=== PATIENT | female | born 1980 | race Caucasian/White ===

== ENCOUNTER → 2022-03-15 | Outpatient (CLI) | payer OTHER ==
[~2022-03-15] MED LIST: CALC-656 PO; CLC500CT PO; KCL10CCR PO; LOPE2TAB23 PO; MAGN200T3 PO; METO25TA2 PO; OMG1KC PO; ONDN4T PO; POTA10CA43 PO; POTA15TA2 PO; PREN1TAB39 PO; PROM25SU10 RC
--- NOTE | 2022-03-15 14:58 | Diagnostic Imaging Report ---
INDICATION: Routine screening. COMPARISON is made with prior mammogram 02/16/2020. 2-D and 3-D bilateral screening mammography was performed with CAD. Both breasts are heterogeneously dense, limiting the sensitivity of mammography. The parenchymal pattern is stable. No mass or malignant-appearing microcalcifications are seen. Axillae are unremarkable. IMPRESSION: BI-RADS Category 1 No mammographic features suspicious for malignancy are identified. ACR BI-RADS Category 1: Negative. Result letter will be mailed to the patient. Note: At least 10% of breast cancer is not imaged by mammography. Dictated by: Dictated on workstation # [id number]
== END ==
LOC: RAD 07:30
PROVIDERS: ATTEND Nurse Practitioner Family
DX: Z12.31 Encounter for screening mammogram for malignant neoplasm of breast (principal); Z80.3 Family history of malignant neoplasm of breast
CPT/HCPCS: 77063; 77067

== ENCOUNTER → 2023-01-13 | Outpatient (CLI) | payer OTHER ==
--- NOTE | 2023-01-13 10:26 | Diagnostic Imaging Report ---
MRI CERVICAL SPINE W/O CONTRAS DATE: 01/13/2023 9:51 AM INDICATION: Neck pain with left arm numbness and weakness TECHNIQUE: Multiplanar multisequence magnetic resonance imaging of the cervical spine was performed without administration of intravenous contrast using the standard cervical spine protocol. COMPARISON: None. FINDINGS: Straightening of the cervical lordosis. Mild retrolisthesis of C4-C5 and C5-C6. Mild anterolisthesis of C3-C4. No acute fracture. Moderate multilevel degenerative disc desiccation and disc height loss. No marrow replacing process to suggest malignancy. The spinal cord is normal in signal intensity. On the limited views of the cranial cavity and brain, the cerebellum and ujan ramon have normal morphology and signal characteristics. No Chiari malformation. No soft tissue abnormality. Normal signal voids are present in the vertebral arteries. C2-3: Disc osteophyte complex. Uncovertebral and facet arthropathy. Mild spinal canal narrowing. No neural foraminal narrowing.. C3-4: Disc osteophyte complex. Uncovertebral and facet arthropathy. Mild spinal canal narrowing. No neural foraminal narrowing.. C4-5: Disc osteophyte complex. Uncovertebral and facet arthropathy. Moderate spinal canal narrowing. Mild bilateral neural foraminal narrowing.. C5-6: Disc osteophyte complex causing mass effect on the spinal cord. Moderate to severe spinal canal narrowing. Severe left and moderate right neural foraminal narrowing.. C6-7: Disc osteophyte complex. Uncovertebral and facet arthropathy. Mild spinal canal narrowing. Mild left neural foraminal narrowing. No right neural foraminal narrowing.. C7-T1: No significant spinal canal stenosis or neural foraminal narrowing. IMPRESSION: Multilevel degenerative changes of the cervical spine, worst at C4-C5 and C5-C6. C4-5: Disc osteophyte complex. Uncovertebral and facet arthropathy. Moderate spinal canal narrowing. Mild bilateral neural foraminal narrowing.. C5-6: Disc osteophyte complex causing mass effect on the spinal cord. Moderate to severe spinal canal narrowing. Severe left and moderate right neural foraminal narrowing. Partially imaged mucosal thickening within the right maxillary sinus may be seen with sinusitis. Dictated by: Dictated on workstation # [id number]
== END ==
LOC: RAD 08:18
PROVIDERS: ATTEND Nurse Practitioner Family
DX: M47.812 Spondylosis without myelopathy or radiculopathy, cervical region (principal); M25.78 Osteophyte, vertebrae; M48.02 Spinal stenosis, cervical region; J34.89 Other specified disorders of nose and nasal sinuses
CPT/HCPCS: 72141